=== PATIENT | female | born 1985 | race African-American/Black ===

== ENCOUNTER 2021-05-05 17:00 | Observation (INO) | payer MEDICAID ==
[~2021-05-05] VITALS: Ht 165.1 cm; Wt 86.2 kg
[2021-05-05] MEDS ORDERED: PREN-118 PO (17:55)
[2021-05-05 18:23] LABS: CLARITY URINE CLEAR (CLEAR); COLOR URINE YELLOW (YELLOW); KETONES URINE NEGATIVE (NEGATIVE); LEUKOCYTE ESTERASE URINE NEGATIVE (NEGATIVE); NITRITE URINE NEGATIVE (NEGATIVE); OCCULT BLOOD URINE NEGATIVE (NEGATIVE); PH URINE 6.5 (4.5-8.0); PROTEIN URINE NEGATIVE (NEGATIVE); SPECIFIC GRAVITY URINE 1.008 (1.005-1.030); UROBILINOGEN URINE 0.2 E.U./dL (0.2-1.0)
[2021-05-05] MEDS ORDERED: DEXT 5%/LACTATED RINGERS 1,000 ML IV SCH (20:00)
[2021-05-05] MEDS ORDERED: ACETAMINOPHEN 500MG TABLET PO NR (20:00)
== END 2021-05-05 20:43 | disposition home or self-care (01) ==
LOC: 8 EST LDRP 17:00
PROVIDERS: ADMIT Obstetrics & Gynecology; ATTEND Obstetrics & Gynecology
DX: O26.893 Other specified pregnancy related conditions, third trimester (principal); K62.89 Other specified diseases of anus and rectum; R10.9 Unspecified abdominal pain; O09.523 Supervision of elderly multigravida, third trimester; Z3A.35 35 weeks gestation of pregnancy
CPT/HCPCS: 59025; 76805; 76818; 81003; G0378; 99281